=== PATIENT | male | born 1970 | race Caucasian/White ===

== ENCOUNTER 2017-01-11 16:21 | Emergency (ER) | payer BC, OTHER ==
[~2017-01-11] VITALS: Ht 190.5 cm; Wt 97.5 kg
--- NOTE | ~2017-01-11 | EKG ---
[place] [address] [facility] [place] [address] ELECTROCARDIOGRAM REPORT Name: CLIFFORD MUÑIZ [facility] [id number] Admission: 01/11/17 Attend Phys: Discharge: 01/11/17 Date of : 68 Report #: [id number] THIS REPORT FOR: //name// 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 : 1970 Requested By: Clover To Order Number: [id number] MD: Jarred Pearson Measurements Intervals [place] Rate: 75 P: -30 [place]: 176 QRS: -54 QRSD: 121 T: 43 QT: 395 QTc: 442 Interpretive Statements Sinus rhythm RBBB and LAFB Left ventricular hypertrophy repolarization abnormality No previous ECG available for comparison Electronically Signed On 01-13-2017 15:10:13 CDT by Jarred Pearson [email or web address] <ELECTRONICALLY SIGNED> By: Jarred Pearson MD, [facility] 01/13/17 1510 1722 1722 Jarred Pearson MD, FACC /EPI
[2017-01-11 18:11] LABS: ABSOLUTE NEUTROPHILS 6.4 thou/uL (1.4-8.2); BASOPHILS 1.1 % (0.0-2.0); EOSINOPHILS 3.9 % (0.0-3.0); HEMATOCRIT 47.7 % (42.0-52.0); HEMOGLOBIN 16.3 gm/dL (14.0-18.0); LYMPHOCYTES 28.1 % (24.0-44.0); MCH 31.2 pg (26.0-34.0); MCHC 34.2 g/dL (28.0-37.0); MCV 91.1 fL (80.0-100.0); MONOCYTES 9.6 % (1.0-8.0); PLATELET COUNT 387 thou/uL (150-400); POLYS 57.3 % (36.0-66.0); RBC 5.23 mil/uL (4.50-6.00); WBC 11.2 thou/uL (4.0-11.0)
[2017-01-11 18:13] LABS: MANUAL DIFF NO
[2017-01-11 18:33] LABS: ANION GAP 10 mmol/L (7-16); BUN 11 mg/dL (7-18); CALCIUM 9.4 mg/dL (8.5-10.1); CHLORIDE 103 mmol/L (98-107); CO2 25 mmol/L (21-32); CREATININE 1.1 mg/dL (0.6-1.3); GLUCOSE 93 mg/dL (70-99); POTASSIUM 3.7 mmol/L (3.5-5.1); SODIUM 138 mmol/L (136-145)
[2017-01-11 18:38] LABS: ALBUMIN 3.9 g/dL (3.4-5.0); ALKALINE PHOSPHATASE 67 U/L (46-116); SGOT 15 U/L (15-37); SGPT 29 U/L (30-65); TOTAL BILIRUBIN 0.3 mg/dL (<0.1-1.0); TOTAL PROTEIN 7.7 g/dL (6.4-8.2); TROPONIN-I < 0.04 ng/mL (<0.04-0.07)
[2017-01-11] MEDS ORDERED: DELTASONE20 MG PO (18:48)
[2017-01-11] MEDS ORDERED: LEVAQUIN 500 M500 M2 PO (18:48)
[2017-01-11] MEDS ORDERED: PROBIOTIC1 EAC1 PO (20:00)
[2017-01-11] MEDS ORDERED: DOXYCYCLINE 10100 M1 PO (20:01)
[2017-01-11] MEDS ORDERED: ROBAXIN 750 MG750 M1 PO (20:02)
== END 2017-01-11 20:43 | disposition home or self-care (01) ==
LOC: ER 16:21
PROVIDERS: Physician Assistant
DX: J15.9 Unspecified bacterial pneumonia (principal); R07.89 Other chest pain; R06.02 Shortness of breath; F17.210 Nicotine dependence, cigarettes, uncomplicated; Z88.1 Allergy status to other antibiotic agents; Z91.030 Bee allergy status

== ENCOUNTER 2017-12-11 07:38 | Emergency (ER) | payer BC, OTHER ==
[~2017-12-11] VITALS: Ht 190.5 cm; Wt 102.1 kg
--- NOTE | ~2017-12-11 | EKG ---
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: : 1970 Requested By: Bayron Hyman Order Number: [id number] MD: Jarred Pearson Measurements Intervals [place] Rate: 75 P: -18 [place]: 175 QRS: -56 QRSD: 126 T: 63 QT: 402 QTc: 449 Interpretive Statements Sinus rhythm Left anterior hemiblock Left ventricular hypertrophy ST elev, probable normal early repol pattern Compared to ECG 01/11/2017 17:22:14 Right bundle-branch block no longer present Electronically Signed On 12-12-2017 8:16:21 OPERATING ROOM TECHNICIAN by Jarred Pearson [email or web address] <ELECTRONICALLY SIGNED> By: Jarred Pearson MD, [facility] 12/12/17815 8 8 Jarred Pearson MD, [facility] /EPI
[~2017-12-11 07:38] MED LIST: DELTASONE20 MG PO; DOXYCYCLINE 10100 M1 PO; LEVAQUIN 500 M500 M2 PO; PROBIOTIC1 EAC1 PO; ROBAXIN 750 MG750 M1 PO
[2017-12-11 08:05] LABS: ABSOLUTE NEUTROPHILS 4.9 thou/uL (1.4-8.2); BASOPHILS 1.1 % (0.0-2.0); EOSINOPHILS 10.4 % (0.0-3.0); HEMATOCRIT 46.6 % (42.0-52.0); HEMOGLOBIN 15.9 gm/dL (14.0-18.0); LYMPHOCYTES 26.5 % (24.0-44.0); MCH 31.3 pg (26.0-34.0); MCHC 34.1 g/dL (28.0-37.0); MCV 91.9 fL (80.0-100.0); MONOCYTES 9.8 % (1.0-8.0); PLATELET COUNT 370 thou/uL (150-400); POLYS 52.2 % (36.0-66.0); RBC 5.07 mil/uL (4.50-6.00); RDW 14.1 % (10.5-14.5); WBC 9.4 thou/uL (4.0-11.0)
[2017-12-11 08:19] LABS: ANION GAP 9 mmol/L (7-16); BUN 13 mg/dL (7-18); CALCIUM 9.9 mg/dL (8.5-10.1); CHLORIDE 104 mmol/L (98-107); CO2 26 mmol/L (21-32); CREATININE 1.2 mg/dL (0.7-1.3); GLUCOSE 139 mg/dL (74-106); POTASSIUM 3.7 mmol/L (3.5-5.1); SODIUM 139 mmol/L (136-145)
[2017-12-11 08:22] LABS: MAGNESIUM 1.8 mg/dL (1.8-2.4); SGOT 23 U/L (15-37); SGPT 45 U/L (30-65); TOTAL BILIRUBIN 0.3 mg/dL (<0.1-1.0); TOTAL PROTEIN 7.8 g/dL (6.4-8.2); TROPONIN-I < 0.04 ng/mL (<0.06)
[2017-12-11] MEDS ORDERED: DOXYCYCLINE 10100 MG PO (09:05)
[2017-12-11] MEDS ORDERED: VENTOLIN HFA 1818 GM INH (09:05)
[2017-12-11] MEDS ORDERED: PREDNISONE 20 M20 MG PO (09:05)
== END 2017-12-11 09:40 | disposition home or self-care (01) ==
LOC: ER 07:38
PROVIDERS: Emergency Medicine
DX: J18.9 Pneumonia, unspecified organism (principal); J98.01 Acute bronchospasm; F17.210 Nicotine dependence, cigarettes, uncomplicated; Z88.6 Allergy status to analgesic agent

== ENCOUNTER 2018-01-16 08:09 | Emergency (ER) | payer BC, OTHER ==
[~2018-01-16] VITALS: Ht 185.4 cm; Wt 84.8 kg
--- NOTE | ~2018-01-16 | EKG ---
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 01/17/18 0820 D: 03/843 3 Jarred Pearson MD, FACC /EPI
[~2018-01-16 08:09] MED LIST changes: +DOXYCYCLINE 10100 MG PO; +PREDNISONE 20 M20 MG PO; +VENTOLIN HFA 1818 GM INH
[2018-01-16 08:51] LABS: ABSOLUTE NEUTROPHILS 3.5 thou/uL (1.4-8.2); BASOPHILS 1.4 % (0.0-2.0); EOSINOPHILS 9.4 % (0.0-3.0); HEMATOCRIT 46.1 % (42.0-52.0); HEMOGLOBIN 15.6 gm/dL (14.0-18.0); LYMPHOCYTES 27.9 % (24.0-44.0); MCH 31.4 pg (26.0-34.0); MCHC 33.9 g/dL (28.0-37.0); MCV 92.6 fL (80.0-100.0); MONOCYTES 11.9 % (1.0-8.0); PLATELET COUNT 336 thou/uL (150-400); POLYS 49.4 % (36.0-66.0); RBC 4.98 mil/uL (4.50-6.00); RDW 14.2 % (10.5-14.5)
[2018-01-16 08:59] LABS: CALCIUM 9.8 mg/dL (8.5-10.1); CREATININE 1.1 mg/dL (0.7-1.3); POTASSIUM 3.9 mmol/L (3.5-5.1)
[2018-01-16 09:05] LABS: ALBUMIN 3.8 g/dL (3.4-5.0); TOTAL BILIRUBIN 0.2 mg/dL (<0.1-1.0); TOTAL PROTEIN 7.3 g/dL (6.4-8.2)
[2018-01-16] MEDS ORDERED: PREDNISONE 20 M20 MG PO (09:11)
[2018-01-16] MEDS ORDERED: PROAIR HFA8.5 GM INH (09:11)
[2018-01-16] MEDS ORDERED: CLARITIN-D 241 EAC1 PO (09:18)
== END 2018-01-16 09:28 | disposition home or self-care (01) ==
LOC: ER 08:09
PROVIDERS: Emergency Medicine
DX: R06.02 Shortness of breath (principal); R05 Cough; F17.210 Nicotine dependence, cigarettes, uncomplicated; Z90.49 Acquired absence of other specified parts of digestive tract; Z88.6 Allergy status to analgesic agent; Z88.8 Allergy status to other drugs, medicaments and biological substances

== ENCOUNTER 2020-03-20 13:43 | Inpatient (IN) | payer BC, OTHER ==
[~2020-03-20] VITALS: Ht 188 cm; Wt 101.2 kg
[~2020-03-20 13:43] MED LIST changes: +CLARITIN-D 241 EAC1 PO; +PROAIR HFA8.5 GM INH
[2020-03-20 13:44] VITALS: BP 123/99
[2020-03-20] MEDS ORDERED: IPRAT-ALBUT 0.5-3 ML INH (13:57)
[2020-03-20] MEDS ORDERED: FLEXERIL PO (13:57)
[2020-03-20 14:10] LABS: ABSOLUTE NEUTROPHILS 5.2 thou/uL (1.4-8.2); BASOPHILS 1.1 % (0.0-2.0); EOSINOPHILS 4.6 % (0.0-3.0); HEMATOCRIT 52.7 % (42.0-52.0); LYMPHOCYTES 25.9 % (24.0-44.0); MCH 33.1 pg (26.0-34.0); MCHC 34.2 g/dL (28.0-37.0); MONOCYTES 7.2 % (1.0-8.0); PLATELET COUNT 342 thou/uL (150-400); POLYS 61.2 % (36.0-66.0); RBC 5.43 mil/uL (4.50-6.00); WBC 8.5 thou/uL (4.0-11.0)
[2020-03-20 14:18] LABS: CALCIUM 9.1 mg/dL (8.5-10.1); CREATININE 1.4 mg/dL (0.7-1.3); POTASSIUM 4.1 mmol/L (3.5-5.1)
[2020-03-20 14:29] LABS: ALBUMIN 3.8 g/dL (3.4-5.0); MAGNESIUM 1.8 mg/dL (1.8-2.4); TOTAL BILIRUBIN 0.2 mg/dL (<0.1-1.0); TOTAL PROTEIN 7.7 g/dL (6.4-8.2); TROPONIN-I 0.17 ng/mL (<0.06)
[2020-03-20 14:32] LABS: BE(vivo) -3.1 mmol/L (-2 to +3); HCO3 20.6 mmol/L (22.0-26.0); PCO2 34.1 mmHg (35.0-45.0); PO2 78.4 mmHg (80.0-100.0); pH 7.399 (7.360-7.450); sO2 95.7 % (92.0-98.0)
[2020-03-20 14:46] LABS: APTT 31.5 Seconds (24.5-32.8); D-DIMER 0.2 ug/mLFEU (0.19-0.50); PROTIME 9.7 Seconds (9.3-11.4)
[2020-03-20 15:17] VITALS: BP 132/90
[2020-03-20 17:20] VITALS: BP 120/75
--- NOTE | 2020-03-20 18:45 | NUR ---
ASSUMED CARE AT 1700, ADMISSION FROM ER. HEPARIN, ANTIBIOTICS STARTED. ANTIBIOTICS ARE RUNNING. PT IS A SMOKER, 2.5 PACKS A DAY, NICOTINE PATCH ORDERED. WILL CONTINUE TO ASSESS AND ASISST WITH ADLs NEEDED.
[2020-03-20 20:30] VITALS: BP 140/88
[2020-03-20 21:00] LABS: AMP/METHAMP Negative (Negative); BARBITURATES Negative (Negative); BENZODIAZEPINES Negative (Negative); COCAINE Negative (Negative); METHADONE Negative (Negative); OPIATES Negative (Negative); PCP Negative (Negative)
[2020-03-21] VITALS (13 sets, daily range): BP systolic 110–157; BP diastolic 68–95
--- NOTE | 2020-03-21 06:59 | NUR ---
ASSUMED PATIENT CARE AT 1845. VITAL SIGNS STABLE WITH PATIENT HAVING NO COMPLAINTS OF NAUSEA. PATIENT DID COMPLAIN OF PAIN VIA HEADACHE WHICH WAS TREATED APPROPRIATELY THROUGH MEDICATIONS. BREATHING STABLE EVIDENCED BY ASSESSMENT AND SPOT OXYGENATION CHECKS. PATIENT SWABBED FOR COVID PER DOCTOR ORDER. UP AD STEPHANIE THROUGHOUT SHIFT, PATIENT IS STRONG AND BALANCED WHEN AMBULATING. CONTINUE PLAN OF CARE.
--- NOTE | 2020-03-21 07:51 | HC ---
[facility] [address] [place] [address] CONSULTATION Name: CLIFFORD MUÑIZ Room #: 210- ADM IN M.R.#: [id number] Admission: 03/20/20 Attend Phys: Efe Lanza MD Discharge: Date of : 68 Report #: [id number] THIS REPORT FOR: cc: FAM - Family physician unknown FAM - Family physician unknown Tejas Chaidez MD ~ CC: [facility] unknown Efe Lanza DATE OF SERVICE: 03/20/2020 CARDIOLOGY CONSULTATION INDICATION: Chest pain. HISTORY OF PRESENT ILLNESS: This is a 49-year-old gentleman with a history of chronic dyspnea, presenting with chest pain. He woke up earlier today with left-sided chest discomfort, radiating down the back of his left arm. He felt diaphoretic and lightheaded. The symptoms persisted for at least 45 minutes. He offers no complaints of fever, chills, nausea or orthopnea. In early December, he had symptoms of cough and dyspnea, but was not hospitalized. There is a question of him having COVID, but testing was not done. He was in self-quarantine for at least 6 weeks. He has had chronic dyspnea for the past year, not really improved with inhalers. He does smoke at least 2 packs of cigarettes per day. PAST MEDICAL HISTORY: Negative diabetes, negative hypertension. ALLERGIES: None. MEDICATIONS: At home include albuterol inhaler, prednisone. SOCIAL HISTORY: Two pack per day smoker. FAMILY HISTORY: Father with an [place] in his 40s. REVIEW OF SYSTEMS: A full 10-point review of systems performed, only the pertinent positives and negatives described in the HPI. PHYSICAL EXAMINATION: VITAL SIGNS: Blood pressure is 140/80, heart rate is 90 beats per minute. GENERAL APPEARANCE: This is a well-developed, well-nourished male in no acute respiratory distress. HEENT: Normocephalic, atraumatic. Oral mucosa moist. NECK: Supple. LUNGS: Clear to auscultation. [facility] [address] [place] [address] CONSULTATION Name: CLIFFORD MUÑIZ [place] Room #: [facility] ADM IN .R.#: [id number] Admission: 03/20/20 Attend Phys: Efe Lanza MD Discharge: Date of : 68 Report #: [id number] CARDIAC: Regular rate and rhythm, S1, S2 positive. ABDOMEN: Soft, nontender. EXTREMITIES: No edema, no cyanosis. LABORATORY VALUES: Peak troponin is 0.68. White count is 8.5, hemoglobin is 18.0, creatinine is 1.4 ECG reveals sinus tachycardia, LVH with IVCD, left axis deviation. ASSESSMENT AND PLAN: 1. Non-ST elevation myocardial infarction, the patient presenting with left-sided chest and arm discomfort. Troponin level is abnormal. I discussed with him the risks, benefits and alternatives of cardiac catheterization. He voices understanding and wishes to proceed. We will start aspirin therapy. 2. Chronic tobacco use, complete smoking cessation is advised. 3. Hypercholesterolemia, start statin therapy. 4. Chronic shortness of air, consider pulmonary evaluation. Symptoms not improved with inhalers. <ELECTRONICALLY SIGNED> By: Tejas Chaidez MD 03/21/20 0751 2237 0344 Tejas Chaidez MD /nt
--- NOTE | 2020-03-21 14:26 | EKG ---
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 : 1970 Requested By: Bayron Hyman Order Number: [id number] MD: Tejas Chaidez Measurements Intervals [place] Rate: 100 P: 33 [place]: 172 QRS: -60 QRSD: 121 T: 76 QT: 365 QTc: 471 Interpretive Statements Sinus tachycardia LVH with IVCD, LAD and secondary repol abnrm Compared to ECG 01/16/2018 08:44:58 Early repolarization now present Sinus rhythm no longer present Electronically Signed On 03-21-2020 14:24:08 CDT by Tejas Chaidez [email or web address] <ELECTRONICALLY SIGNED> By: Tejas Chaidez MD 03/21/20 1424 1343 1343 Tejas Chaidez MD /EPI
--- NOTE | 2020-03-21 15:07 | CATHLAB ---
[facility] [address] [place] [address] INVASIVE PROCEDURE REPORT Name: CLIFFORD MUÑIZ Room #: 210-P ADM IN M.R.#: [id number] Admission: 03/20/20 Attend Phys: Efe Lanza MD Discharge: Date of : 68 Report #: [id number] THIS REPORT FOR: cc: FAM - Family physician unknown FAM - Family physician unknown Tejas Chaidez MD ~ APPROVED REPORT Study performed: 03/21/2020 10:38:48 Patient Details Patient Status: In-Patient Room #: 210 The patient is a 49 year-old male Event Personnel Tejas Chaidez Phys Asst, Everton Samuel RN, Elise Sena RTR, RAILCAR SWITCHER Monitor, Milena Knott Scrub Procedures Performed Art Access - R femoral artery* Left Heart Cath w/or w/o Coronaries [id number] [facility] 43094 Initial Mod Sed Same Phys/QHP Gr5y 787112 Hemostasis with Manual pressure 22653 Mod Sed Same Phys/QHP Ea 578604 Indication Non-STEMI , Dyspnea, Chest pain Risk Factors Hypercholesterolemia, Tobacco History () Procedure Narrative The Right Groin^ was infiltrated with 1% Lidocaine subcutaneous anesthesia. A PINNACLE 4FR Sheath #[id number] sheath was inserted into the RFA^. Coronary angiography was performed using coronary diagnostic catheters. The right coronary system was accessed and visualized with a JR4 catheter. The left coronary system was accessed and visualized with a JL5 catheter. The left ventricle was accessed and visualized with a angled pigtail catheter. Left ventricular/Aortic Valve gradient assessed via catheter pullback. Left ventriculogram was performed in 30 degree projection. Hemostasis was obtained with manual pressure following sheath removal without any complications. The patient tolerated the procedure well and there were no complications associated with the procedure. There was no hematoma. [facility] [address] [place] [address] INVASIVE PROCEDURE REPORT Name: CLIFFORD MUÑIZ MATTHEWS Room #: 210-[facility] IN ..#: [id number] Admission: 03/20/20 Attend Phys: Efe Lanza MD Discharge: Date of : 68 Report #: [id number] Intraoperative Conscious Sedation Sedation start time: 11:14 Case end Time: 11:50 Fentanyl 50 mcg Versed 2 mg Fluoro Time: 2.56 minutes Dose: DAP 5220.60 cGycm2 654 mGy Contrast Type and Amount: Visipaque 105 ml Coronary Angiography The patient's coronary anatomy is right dominant. Diagnostic Cath Left Main Left main is a patent vessel, with no flow-limiting lesions. LAD The LAD is a moderate-sized caliber vessel, traverses the anterior wall and wraps around the apex. There is mild disease in the midsegment, 30%. Diagonal 1 This is a small caliber vessel, patent with no flow-limiting lesions. Diagonal 2 This is a moderate-sized caliber vessel, appears angiographically normal. Circumflex The left circumflex artery is a moderate-sized caliber vessel, supplies 3 OM vessels. OM1 This is a small caliber vessel, patent with no flow-limiting lesions. OM2 This is a moderate-sized caliber vessel, appears angiographically normal. OM3 This is a moderate-sized caliber vessel, with mild plaquing proximally, 20%. Right Coronary The RCA is a dominant vessel with mild plaquing in the distal segment, 20%. R PDA This is a moderate-sized caliber vessel, appears angiographically normal. RPLV This is a moderate-sized caliber vessel, appears angiographically normal. Left Ventriculography The left ventricle is normal in size with normal contractility. The left ventricular ejection fraction is estimated to be 55-60%. Hemodynamics The aortic pressure is 122/80 mmHg with a mean of 92 mmHg. The left ventricular pressure is 126/8 mmHg with a mean of mmHg. The left [facility] [address] [place] [address] INVASIVE PROCEDURE REPORT Name: CLIFFORD MUÑIZ PAMELA Room #: [facility]- ADM IN M.R.#: [id number] Admission: 03/20/20 Attend Phys: Efe Lanza MD Discharge: Date of : 68 Report #: [id number] ventricular end diastolic pressure is 20 mmHg. Conclusion 1. Mild, nonobstructive disease in the LAD, OM 3 and RCA. 2. Normal LV systolic function. 3. Recommend guideline directed medical therapy. <ELECTRONICALLY SIGNED> By: Tejas Chaidez MD 03/21/20 1505 1505 1505 Tejas Chaidez MD /INF
--- NOTE | 2020-03-21 17:12 | NUR ---
[facility] PT A&O X4. ASSESSMENT CHARTED. PT AMBULATES STEADY/INDEPENDENT. PT DENIES HAVING CHEST PAIN. PT STATES HE HAS SOB ON EXERSION. PT O2 SATS STABLE. PT STATED HE HAD HEADACHE. PT RECEIVED MEDICATIONS AND ANALGESICS. PT STATED ANALGESICS AND MEDICATIONS HELPED DECREASE HEADACHE. PT HAD NON-INTERVENTIONAL CATH. VITAL SIGNS STABLE. R GROIN C/D/I. NO HEMATOMA. VITAL SIGNS STABLE. PT OFF BEDREST. PT AMBUALTES STEADY. 24 HOUR URINE COLLECTION IN PROCESS. EDUCATED PT ABOUT POC. PT STATED UNDERSTANDING AND DENIED HAVING FURTHER QUESTIONS. PT COMFORTABLE IN BED. PT DENIES HAVING FURTHER CONCERNS.
[2020-03-22 02:09] LABS: COLLECTION DURATION 24 hours; TOTAL VOLUME 4000 mL
[2020-03-22 02:16] LABS: URINE SODIUM 408 mmol/24 (40-220); URINE SODIUM-mEq/L 102 mmol/L
[2020-03-22 04:15] VITALS: BP 134/80
[2020-03-22 05:11] LABS: CALCIUM 8.6 mg/dL (8.5-10.1); CREATININE 1.1 mg/dL (0.7-1.3); POTASSIUM 3.5 mmol/L (3.5-5.1)
--- NOTE | 2020-03-22 05:29 | NUR ---
PT A&O X4 ABLE TO MAKE NEEDS KNOWN. UP AD STEPHANIE. 24 HR URINE COLLECTION COMPLETED OVERNIGHT AND SENT TO LAB. PT ON CIWA PROTOCOL ENDORSES MILD HEADACHE AND MILD HAND TREMORS NO OTHER ALCOHOL W/DRAW SYMPTOMS. STATES LAST TIME HE DRUNK WAS LAST WEEK ON SATURDAY. STATED HE DRINKS A 12 PACK ONCE OR TWICE PER WEEK. PT DENIES OTHER PAIN BESIDE MILD RAE.
[2020-03-22 06:00] LABS: HEMATOCRIT 47.7 % (42.0-52.0); MCH 32.6 pg (26.0-34.0); MCHC 33.5 g/dL (28.0-37.0); MCV 97.5 fL (80.0-100.0); RBC 4.89 mil/uL (4.50-6.00); RDW 15.1 % (10.5-14.5); WBC 19.8 thou/uL (4.0-11.0)
[2020-03-22 07:00] VITALS: BP 98/75
[2020-03-22] MEDS ORDERED: LIPITOR40 MG PO (08:45)
[2020-03-22] MEDS ORDERED: ASPIR 8181 MG PO (08:45)
[2020-03-22] MEDS ORDERED: CEFUROXIME500 MG PO (12:17)
[2020-03-22] MEDS ORDERED: PROTONIX 20 MG20 M1 PO (12:17)
[2020-03-22] MEDS ORDERED: ZITHROMAX500 MG PO (12:17)
[2020-03-22] MEDS ORDERED: ACETAMINOPHEN325 M1 PO (12:17)
[2020-03-22] MEDS ORDERED: PREDNISONE 5 MG5 M1 PO (12:17)
[2020-03-22] MEDS ORDERED: XANAX 0.25 MG0.25 MG PO (12:24)
[2020-03-22 12:42] VITALS: BP 98/75
[2020-03-22 12:44] VITALS: BP 98/75
--- NOTE | 2020-03-22 13:09 | NUR ---
ASSUMED CARE PT SHIFT CHANGE. ASSSESSMENT CHARTED.MEDS GIVEN PER DEC. PT ALERT AND ORIENTED.VSS. C/O HEADACHE MANAGED WITH PO PAIN MEDS. O2 SATS WNL ON ROOM AIR. RT GROIN SITE CDI, NO HEMATOMA. DC ORDERS RECEIVEDAND IMPLEMENTED. DISCUSSED WITH PT REGARDING FOLLOW UPS WITH CARDS AND DR MILLER. COMMUNCIATES UNDERSTANDING. IV REMOVED. TELE REMOVED. PT LEFT WITH ALL BELONGINGS AND SCRIPTS.
== END 2020-03-22 13:06 | disposition home or self-care (01) | DRG 282 ==
LOC: ER 13:43 → 2N 15:08 → EROBS 15:08 → 2N 16:46
PROVIDERS: Emergency Medicine; Internal Medicine Cardiovascular Disease; ADMIT Internal Medicine
PROC: B211YZZ Fluoroscopy of Multiple Coronary Arteries using Other Contrast (ICD-10-PCS; principal; 2020-03-21)
PROC: B215YZZ Fluoroscopy of Left Heart using Other Contrast (ICD-10-PCS; principal; 2020-03-21)
PROC: 4A023N7 Measurement of Cardiac Sampling and Pressure, Left Heart, Percutaneous Approach (ICD-10-PCS; principal; 2020-03-21)
DX: I21.4 Non-ST elevation (NSTEMI) myocardial infarction (principal); F17.210 Nicotine dependence, cigarettes, uncomplicated; E78.00 Pure hypercholesterolemia, unspecified; J44.9 Chronic obstructive pulmonary disease, unspecified; F41.9 Anxiety disorder, unspecified; K21.9 Gastro-esophageal reflux disease without esophagitis; Z20.828 Contact with and (suspected) exposure to other viral communicable diseases; Z82.49 Family history of ischemic heart disease and other diseases of the circulatory system; Z71.6 Tobacco abuse counseling; Z91.19 Patient's noncompliance with other medical treatment and regimen; Z90.49 Acquired absence of other specified parts of digestive tract; Z88.6 Allergy status to analgesic agent; Z79.82 Long term (current) use of aspirin; Z79.899 Other long term (current) drug therapy
CPT/HCPCS: 10081

== ENCOUNTER 2021-05-17 12:37 | Emergency (ER) | payer BC, OTHER ==
[~2021-05-17] VITALS: Ht 190.5 cm; Wt 99.8 kg
[~2021-05-17 12:37] MED LIST changes: +ACETAMINOPHEN325 M1 PO; +ASPIR 8181 MG PO; +CEFUROXIME500 MG PO; +FLEXERIL PO; +IPRAT-ALBUT 0.5-3 ML INH; +LIPITOR40 MG PO; +PREDNISONE 5 MG5 M1 PO; +PROTONIX 20 MG20 M1 PO; +XANAX 0.25 MG0.25 MG PO; +ZITHROMAX500 MG PO
[2021-05-17 13:27] LABS: ABSOLUTE NEUTROPHILS 8.6 thou/uL (1.4-8.2); EOSINOPHILS 2.8 % (0.0-3.0); HEMATOCRIT 47.4 % (42.0-52.0); HEMOGLOBIN 16.1 gm/dL (14.0-18.0); LYMPHOCYTES 16.2 % (24.0-44.0); MCH 35.1 pg (26.0-34.0); MCV 103.2 fL (80.0-100.0); MONOCYTES 5.9 % (1.0-8.0); PLATELET COUNT 343 thou/uL (150-400); POLYS 74.1 % (36.0-66.0); RDW 15.5 % (10.5-14.5); WBC 11.7 thou/uL (4.0-11.0)
[2021-05-17 13:29] LABS: ANION GAP 14 mmol/L (7-16); BUN 23 mg/dL (7-18); CALCIUM 9.1 mg/dL (8.5-10.1); CHLORIDE 101 mmol/L (98-107); CO2 22 mmol/L (21-32); CREATININE 1.4 mg/dL (0.7-1.3); GLUCOSE 135 mg/dL (74-106); POTASSIUM 3.4 mmol/L (3.5-5.1); SODIUM 137 mmol/L (136-145)
[2021-05-17 13:39] LABS: ALBUMIN 3.9 g/dL (3.4-5.0); MAGNESIUM 1.9 mg/dL (1.8-2.4); SGOT 21 U/L (15-37); SGPT 29 U/L (30-65); TOTAL BILIRUBIN 0.8 mg/dL (0.2-1.0); TOTAL PROTEIN 7.5 g/dL (6.4-8.2); TROPONIN-I <0.06 ng/mL (<0.06)
[2021-05-17] MEDS ORDERED: PREDNISONE 20 M20 MG PO (17:07)
[2021-05-17] MEDS ORDERED: PROAIR HFA8.5 GM INH (17:07)
[2021-05-17] MEDS ORDERED: AZITHROMYCIN 2250 MG PO (17:07)
[2021-05-17 17:09] VITALS: BP 133/86
--- NOTE | 2021-05-18 09:37 | EKG ---
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 : 1970 Requested By: Jorgito De La O Order Number: [id number] MD: Jarred Pearson Measurements Intervals [place] Rate: 89 P: -2 [place]: 163 QRS: -60 QRSD: 124 T: 108 QT: 382 QTc: 465 Interpretive Statements Sinus rhythm Left anterior fascicular block IVCD, consider atypical RBBB LVH with IVCD and secondary repol abnrm Baseline wander in lead(s) V2,V3,V4,V5,V6 Compared to ECG 03/20/2020 13:43:21 Sinus tachycardia no longer present Electronically Signed On 05-18-2021 9:37:48 CDT by Jarred Pearson [email or web address] <ELECTRONICALLY SIGNED> By: Jarred Pearson MD, [facility] 05/18/21 0937 1303 1303 Jarred Pearson MD, [facility] /EPI
== END 2021-05-17 17:09 | disposition home or self-care (01) ==
LOC: ER 12:37
PROVIDERS: Emergency Medicine
DX: J18.9 Pneumonia, unspecified organism (principal); R06.02 Shortness of breath; J44.9 Chronic obstructive pulmonary disease, unspecified; F10.10 Alcohol abuse, uncomplicated; F17.210 Nicotine dependence, cigarettes, uncomplicated; Z20.822 Contact with and (suspected) exposure to COVID-19; Z79.51 Long term (current) use of inhaled steroids; Z79.82 Long term (current) use of aspirin; Z79.899 Other long term (current) drug therapy; Z88.6 Allergy status to analgesic agent; Z91.030 Bee allergy status; Z91.048 Other nonmedicinal substance allergy status

== ENCOUNTER → 2021-10-16 | Outpatient (CLI) | payer BC, OTHER ==
[~2021-10-16] MED LIST changes: +AZITHROMYCIN 2250 MG PO
== END ==
LOC: RAD 10:57
PROVIDERS: ATTEND Internal Medicine
DX: J43.9 Emphysema, unspecified (principal)